=== PATIENT | female | born 1945 | race Caucasian/White ===

== ENCOUNTER 2024-06-04 08:58 | Observation (INO) | payer MEDICARE, OTHER ==
[~2024-06-04] VITALS: Ht 162.6 cm; Wt 88.0 kg
[~2024-06-04 08:58] MED LIST: ABAT125S IV; APIX5TAB3 PO; LOSA-415 PO; ROSU20TA73 PO; SOTA80TA73 PO
[2024-06-04 09:37] LABS: BASOPHILS % (AUTO) 0.4 % (0-1); EOSINOPHILS # (AUTO) 0.3 X10'3 (0-0.9); EOSINOPHILS % (AUTO) 3.2 % (0-6); HEMATOCRIT 42.8 % (35.0-45.0); HEMOGLOBIN 13.9 g/dl (12.0-16.0); LYMPHOCYTES # (AUTO) 1.7 X10'3 (1.1-4.8); LYMPHOCYTES % (AUTO) 21.7 % (21-51); MEAN CORPUSCULAR HEMOGLOBIN 30.2 PG (27.0-31.0); MEAN CORPUSCULAR HGB CONC 32.5 g/dL (33.0-36.5); MEAN CORPUSCULAR VOLUME 92.9 FL (78-98); MEAN PLATELET VOLUME 10.4 FL (7.4-10.4); MONOCYTES # (AUTO) 0.7 X10'3 (0-0.9); MONOCYTES % (AUTO) 9.3 % (2-12); NEUTROPHILS # (AUTO) 5.2 X10'3 (1.8-7.7); NEUTROPHILS % (AUTO) 65.4 % (42-75); PLATELET COUNT 180 X10'3 (140-440); RED CELL DISTRIBUTION WIDTH 14.3 % (11.5-14.5)
[2024-06-04 09:49] LABS: ALANINE AMINOTRANSFERASE 23 U/L (12-78); ALBUMIN 3.1 G/DL (3.4-5.0); ALBUMIN/GLOBULIN RATIO 0.7 (1.1-1.5); ALKALINE PHOSPHATASE 96 IU/L (46-116); ANION GAP 8 (8-16); ASPARTATE AMINO TRANSFERASE 16 U/L (10-37); BILIRUBIN,TOTAL 0.5 MG/DL (0.1-1.0); BLOOD UREA NITROGEN 18 MG/DL (7-18); BUN/CREATININE RATIO 19.8 (10.0-20.0); CALCIUM 9.2 MG/DL (8.5-10.1); CHLORIDE 106 MMOL/L (99-107); CREATININE 0.91 MG/DL (0.40-0.90); GLUCOSE 110 MG/DL (70-104); POTASSIUM 4.1 MMOL/L (3.5-5.1); SODIUM 141 MMOL/L (135-145); TOTAL CARBON DIOXIDE 26.7 MMOL/L (24-32); TOTAL PROTEIN 7.4 G/DL (6.4-8.2); eCRCL 42 ML/MIN; eGFR 59 ML/MIN
[2024-06-04 09:56] LABS: PRO BRAIN NATRIURETIC PEPTIDE 317 PG/ML (0-450)
[2024-06-04] MEDS ORDERED: iohexol 350MG/ML 100ml bottle IV ONE (10:12)
[2024-06-04] MEDS: ondansetron/PF 4mg/2ml inj IV ONE (10:47)
[2024-06-04] MEDS: nitroGLYCERIN 0.4mg SUBLingual tab SL PRN (10:47)
[2024-06-04] MEDS: morphine 4 MG/ML inj SYRINge IV ONE (10:48)
[2024-06-04] MEDS ORDERED: aspirin 325mg tablet PO ONE (11:15)
[2024-06-04] MEDS ORDERED: ondansetron/PF 4mg/2ml inj IV PRN (11:30)
[2024-06-04] MEDS ORDERED: magnesium sulf-water 2g/50mL 50 ML IV PRN (11:30)
[2024-06-04] MEDS ORDERED: potassium Cl 40MEQ/1/2NS 520ml 520 ML IV PRN (11:30)
[2024-06-04] MEDS ORDERED: potassium Cl 20 mEq SR tablet PO PRN ×2 (11:30)
[2024-06-04] MEDS ORDERED: magnesium Cl slow-release 64mg tablet PO PRN (11:30)
[2024-06-04] MEDS ORDERED: magnesium sulf-water 4G/100mL 100 ML IV PRN (11:30)
[2024-06-04 13:05] LABS: CHOL/HDL RATIO 2.2 (0.00-4.99); CHOLESTEROL 189 MG/DL (0-200); HDL CHOLESTEROL 85 MG/DL (35-60); LDL CHOLESTEROL 81 MG/DL (50-100); TRIGLYCERIDES 73 MG/DL (20-135)
[2024-06-04] MEDS: HYDROmorphone inj. 0.5 MG/0.5 ML DISP.SYRIN IV ONE (13:06)
[2024-06-04 15:00] VITALS: BP 138/69; PULSE 112; RESP 18; TEMP 97.1; O2SAT 92
[2024-06-04 18:00] VITALS: BP 111/62; PULSE 113; RESP 24; TEMP 98.6; O2SAT 94
[2024-06-04 19:36] VITALS: RESP 22; O2SAT 97
[2024-06-04] MEDS: K and/or MAG REPLACEMENT MC SCH (20:00)
[2024-06-04] MEDS ORDERED: ABATACEPT IV SCH (21:00)
[2024-06-04] MEDS: sotalol HCl 40mg (1/2 tablet) PO SCH (21:15)
[2024-06-04] MEDS: apixaban 5mg tablet PO ONE (21:32)
[2024-06-04] MEDS ORDERED: OMEP20CA16 PO (21:32)
[2024-06-04] MEDS: docusate sod 100mg capsule PO SCH (21:32)
[2024-06-04 22:00] VITALS: BP 134/72; PULSE 87; RESP 14; TEMP 98.3; O2SAT 95
[2024-06-05 06:00] VITALS: BP 114/63; PULSE 92; RESP 16; TEMP 98.3; O2SAT 95
[2024-06-05 06:15] LABS: BASOPHILS % (AUTO) 0.4 % (0-1); EOSINOPHILS # (AUTO) 0.1 X10'3 (0-0.9); EOSINOPHILS % (AUTO) 1.2 % (0-6); HEMATOCRIT 37.6 % (35.0-45.0); HEMOGLOBIN 12.3 g/dl (12.0-16.0); LYMPHOCYTES # (AUTO) 1.4 X10'3 (1.1-4.8); LYMPHOCYTES % (AUTO) 16.3 % (21-51); MEAN CORPUSCULAR HGB CONC 32.6 g/dL (33.0-36.5); MEAN CORPUSCULAR VOLUME 91.9 FL (78-98); MEAN PLATELET VOLUME 9.3 FL (7.4-10.4); MONOCYTES % (AUTO) 11.7 % (2-12); NEUTROPHILS % (AUTO) 70.4 % (42-75); PLATELET COUNT 192 X10'3 (140-440); RED BLOOD COUNT 4.09 X10'6 (4.20-5.60); RED CELL DISTRIBUTION WIDTH 14.1 % (11.5-14.5); WHITE BLOOD COUNT 8.5 X10'3 (4.5-11.0)
[2024-06-05 06:18] LABS: ALBUMIN 2.4 G/DL (3.4-5.0); ANION GAP 4 (8-16); BLOOD UREA NITROGEN 12 MG/DL (7-18); BUN/CREATININE RATIO 16.4 (10.0-20.0); CALCIUM 8.8 MG/DL (8.5-10.1); CHLORIDE 105 MMOL/L (99-107); CREATININE 0.73 MG/DL (0.40-0.90); GLUCOSE 104 MG/DL (70-104); MAGNESIUM 1.8 MG/DL (1.5-2.4); POTASSIUM 4.1 MMOL/L (3.5-5.1); SODIUM 137 MMOL/L (135-145); TOTAL CARBON DIOXIDE 28.4 MMOL/L (24-32); eCRCL 52 ML/MIN; eGFR 77 ML/MIN
[2024-06-05] MEDS: losartan 25mg tablet PO SCH (08:30)
[2024-06-05] MEDS: apixaban 5mg tablet PO SCH (08:32)
[2024-06-05] MEDS: acetaminophen 325mg tablet PO PRN (08:32)
[2024-06-05 08:41] VITALS: RESP 16
[2024-06-05 10:00] VITALS: BP 108/62; PULSE 77; RESP 18; TEMP 97.8; O2SAT 93
[2024-06-05] MEDS ORDERED: NITR0.4T51 SL (12:21)
[2024-06-05] MEDS ORDERED: AMOX-419 PO (12:22)
[2024-06-05] MEDS ORDERED: ROSUVASTATIN CALCIUM 5 MG TABLET PO SCH (21:00)
== END 2024-06-05 13:20 | disposition home or self-care (01) ==
LOC: ER 08:58 → ED HOLD 11:32 → ORTHO 4S 14:45
PROVIDERS: ADMIT Internal Medicine; ATTEND Internal Medicine
DX: J20.9 Acute bronchitis, unspecified (principal); J42 Unspecified chronic bronchitis; R07.89 Other chest pain; J90 Pleural effusion, not elsewhere classified; J98.11 Atelectasis; I48.0 Paroxysmal atrial fibrillation; M06.9 Rheumatoid arthritis, unspecified; E78.5 Hyperlipidemia, unspecified; I10 Essential (primary) hypertension; G47.33 Obstructive sleep apnea (adult) (pediatric); Z79.899 Other long term (current) drug therapy; Z79.82 Long term (current) use of aspirin; Z79.01 Long term (current) use of anticoagulants; Z87.891 Personal history of nicotine dependence
CPT/HCPCS: 71275; 80048; 80053; 80061; 83605; 83735; 83880; 84145; 84484; 93005; 96374; 96375; 99285; A4615; G0378; 36415; 71045; 85025; 93306; J1171; J2270; J2405; Q9967